=== PATIENT | male | born 1975 | race Hispanic/Latino ===

== ENCOUNTER 2017-06-04 06:47 | Day surgery (SDC) | payer BC ==
[2017-06-03 12:56] VITALS: BMI 33.0
[2017-06-04 07:11] LABS: Prothrombin Time 13.2 SEC (12.0-14.7)
[2017-06-04 07:12] LABS: PTT 32.3 SEC (22.9-36.1)
[2017-06-04 07:16] LABS: Hemoglobin 17.5 g/dL (14.0-18.0); Mean Corpuscular HGB CONC 34.6 g/dL (32.0-36.0); Mean Corpuscular Hemoglobin 34.3 pg (27.0-31.0); Mean Corpuscular Volume 99.2 fl (80.0-94.0); Mean Platelet Volume 9.3 fL (7.4-10.4); Platelet Count 159 thou/uL (130-400); RBC Distribution Width 11.2 % (11.5-14.5); Red Blood Cell (RBC) Count 5.12 mill/uL (4.70-6.10); White Blood Cell (WBC) Count 8.6 thou/uL (4.8-10.8)
[2017-06-04 08:53] VITALS: BP 126/75; TEMP 97.7
[2017-06-04] MEDS ORDERED: Midazolam HCl 2 mg/2 ml Vial ONE (09:02)
[2017-06-04] MEDS ORDERED: Fentanyl 100 MCG/2 ML VIAL ONE (09:02)
--- NOTE | 2017-06-04 10:07 | ULT ---
SONOGRAPHIC GUIDED RANDOM HEPATIC BIOPSY: History: Abnormal liver function tests. FINDINGS: After explaining the procedure and answering all questions, limited sonographic evaluation of the [facility] er was performed. Sub xiphoid approach to the left liver lobe was planned. Sterile technique, buffere d local anesthesia, sonographic guidance, and an anterior approach were used to carefully advance the tip of a 17 gauge Trocar needle into the medial segment left liver lobe. Position was confirmed with sonography. Two 18 gauge core biopsy specimens were obtained without difficulty and eventually submi tted for pathology for evaluation. Needle was removed. Patient tolerated the procedure well and was r eturned to the holding area in good condition for further monitoring. IMPRESSION: Technically successfully sonographically guided hepatic biopsy. Pathology is pending. POS: [facility]KEN[facility]
== END 2017-06-04 10:40 | disposition home or self-care (01) ==
LOC: ULT 06:47
PROVIDERS: ATTEND Internal Medicine Gastroenterology
PROC: 0FB23ZX Excision of Left Lobe Liver, Percutaneous Approach, Diagnostic (ICD-10-PCS; principal; 2017-06-04)
DX: K75.81 Nonalcoholic steatohepatitis (NASH) (principal); I87.8 Other specified disorders of veins; Z79.84 Long term (current) use of oral hypoglycemic drugs; Z79.899 Other long term (current) drug therapy
CPT/HCPCS: 36415; 47000; 76942; 82105; 85027; 85610; 85730; 88307; 88313; J2250; J3010

== ENCOUNTER 2019-03-07 08:36 | Outpatient (CLI) | payer BC ==
--- NOTE | 2019-03-07 11:34 | ULT ---
HEPATIC SONOGRAM WITH DUPLEX EVALUATION: Date: 03/07/19 HISTORY: Abnormal liver function tests. FINDINGS: Gallbladder is surgically absent. Common duct is 0.3 cm. Liver is diffusely echogenic without focal m ass or intrahepatic biliary dilatation. No free fluid. Spleen measures up to 11.1 cm. Good color and spectral Doppler flow within the hepatic and splenic arteries. Portal venous flow is t owards the liver. Hepatic venous flow is towards the IVC. IMPRESSION: 1. Hepatosteatosis. 2. No sonographic findings of portal venous hypertension. 3. Status post cholecystectomy. POS: [facility]
== END 2019-03-07 08:37 | disposition home or self-care (01) ==
LOC: ULT 08:36
PROVIDERS: ATTEND Physician Assistant Medical
DX: K74.60 Unspecified cirrhosis of liver (principal); R94.5 Abnormal results of liver function studies; K59.00 Constipation, unspecified; K76.0 Fatty (change of) liver, not elsewhere classified; Z90.49 Acquired absence of other specified parts of digestive tract
CPT/HCPCS: 76705